=== PATIENT | male | born 1975 | race Caucasian/White ===

== ENCOUNTER 2018-05-08 07:06 | Emergency (ER) | payer SELFPAY ==
[~2018-05-08] VITALS: Ht 193 cm; Wt 81.6 kg
[2018-05-08 07:21] VITALS: BP 140/89
[2018-05-08] MEDS ORDERED: LIDOCAINE 1% 500 MG/50 ML VIAL INJ SCH (07:30)
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
[2018-05-08] MEDS ORDERED: NEOMYCIN/POLYMYXIN/BACITRACIN OPTH OINT 3.5 GM TUBE OP SCH (08:00)
--- NOTE | 2018-05-08 08:00 | NUR ---
NEOSPORIN OINT. APPLIED TO WOUND, LT. UPPER LIP
[2018-05-08] MEDS ORDERED: NEOMYCIN/POLYMYXIN/BACITRACIN OIN 15 GM TUBE TP ONE (08:05)
[2018-05-08] MEDS ORDERED: NEOMYCIN/POLYMYXIN/BACITRACIN 0.9 GM/1 PKT TP ONE (08:07)
[2018-05-08 08:12] VITALS: BP 135/95
--- NOTE | 2018-05-08 08:12 | NUR ---
Patient discharged with v/s stable. Written and verbal after care instructions given and explained. Patient alert, oriented and verbalized understanding of instructions. Ambulatory with steady gait. All questions addressed prior to discharge. ID band removed. Patient advised to follow up with PMD. Rx of PEN VK given. Patient educated on indication of medication including possible reaction and side effects. Opportunity to ask questions provided and answered.
== END 2018-05-08 08:12 | disposition home or self-care (01) ==
LOC: MED 07:06
DX: S01.511A Laceration without foreign body of lip, initial encounter (principal); Y04.8XXA Assault by other bodily force, initial encounter; R03.0 Elevated blood-pressure reading, without diagnosis of hypertension
CPT/HCPCS: 40650; 99284; J2001